=== PATIENT | male | born 1975 | race Hispanic/Latino ===

== ENCOUNTER 2022-04-28 20:48 | Inpatient (IN) | payer SELFPAY ==
[~2022-04-28] VITALS: Ht 185.4 cm; Wt 95.3 kg
[2022-04-28] MEDS ORDERED: SODIUM CHLORIDE 0.9% 1000ML 1,000 ML IV STA ×2 (20:51)
[2022-04-28 21:09] LABS: BASOPHILS # (AUTO) 0.1 (0.0-0.1); BASOPHILS % 0.9 % (0.0-1.0); EOSINOPHILS % 0.4 % (0.0-6.0); HEMATOCRIT 41.3 % (38.2-49.6); HEMOGLOBIN 12.3 g/dL (14.0-18.0); LYMPHOCYTES # (AUTO) 1.8 (1.0-3.2); LYMPHOCYTES % 33.6 % (18.0-39.1); MEAN CORPUSCULAR HEMOGLOBIN 20.9 pg (28-32); MEAN CORPUSCULAR HGB CONC 29.8 g/dL (31-35); MEAN CORPUSCULAR VOLUME 70.2 fL (81-99); MONOCYTES # (AUTO) 0.7 (0.2-0.8); MONOCYTES % 12.2 % (4.4-11.3); NEUTROPHILS # (AUTO) 2.9 (2.1-6.9); NEUTROPHILS % 52.7 % (38.7-80.0); PLATELET COUNT 384 x10e3/uL (140-360); RED BLOOD COUNT 5.88 x10e6/uL (4.3-5.7)
[2022-04-28 21:35] LABS: ALBUMIN 3.4 g/dL (3.5-5.0); ANION GAP 17.6 mmol/L (8-16); CALCIUM 8.2 mg/dL (8.4-10.2); CREATININE, SERUM 1.17 mg/dL (0.72-1.25); POTASSIUM 3.6 mmol/L (3.5-5.1)
[2022-04-28] MEDS ORDERED: ONDANSETRON HCL INJ 2MG/ML 2ML 2 MG/ML VIAL IV STA ×2 (21:39→21:44)
[2022-04-28 21:42] LABS: CREATINE KINASE MB 4.9 ng/mL (0-5.0)
[2022-04-28] MEDS ORDERED: LORAZEPAM INJ 2 MG/ML VIAL IV STA (21:44)
[2022-04-28] MEDS ORDERED: SODIUM CHLORIDE 0.9% 1000ML 1,000 ML IV SCH (22:00)
[2022-04-28] MEDS ORDERED: Morphine 4mg INJECTION 4 MG/ML INJ IV PRN (22:00)
[2022-04-28] MEDS ORDERED: LORAZEPAM INJ 2 MG/ML VIAL ONE (22:01)
[2022-04-28] MEDS ORDERED: IOPAMIDOL 370 MG/ML 100 ML INFUS..BTL INJ ONE (22:25)
[2022-04-28] MEDS ORDERED: DIAZEPAM INJ 5 MG/ML 2 ML IV STA ×2 (22:32→22:58)
[2022-04-28] MEDS ORDERED: DIAZEPAM INJ 5 MG/ML 2 ML ONE (23:13)
[2022-04-28] MEDS ORDERED: ZIPRASIDONE 20 MG VIAL IM STA (23:45)
[2022-04-28] MEDS ORDERED: DIPHENHYDRAMINE HCL 25 MG CAP PO STA (23:47)
[2022-04-29] VITALS (12 sets, daily range): BP systolic 115–176; BP diastolic 80–108
[2022-04-29 00:03] LABS: AMPHETAMINES SCREEN,URINE NEGATIVE (NEGATIVE); BENZODIAZEPINES SCREEN,URINE POSITIVE (NEGATIVE); PHENCYCLIDINE SCREEN,URINE NEGATIVE (NEGATIVE)
[2022-04-29] MEDS ORDERED: DIPHENHYDRAMINE HCL INJ 50 MG/ML VIAL ONE (00:03)
[2022-04-29] MEDS ORDERED: LABETALOL HCL 5 MG/ML 20ML VIAL IV STA ×2 (00:28→00:40)
[2022-04-29] MEDS ORDERED: SODIUM CHLORIDE 0.9% 1000ML 1,000 ML IV STA (00:39)
[2022-04-29] MEDS ORDERED: DIAZEPAM INJ 5 MG/ML 2 ML IV STA (01:19)
[2022-04-29 01:41] LABS: CREATINE KINASE MB 6.4 ng/mL (0-5.0)
[2022-04-29] MEDS ORDERED: ACETAMINOPHEN 325 MG TAB PO ONE (05:15)
[2022-04-29] MEDS ORDERED: ACETAMINOPHEN 325 MG TAB ONE (05:22)
[2022-04-29 05:32] LABS: BASOPHILS # (AUTO) 0.1 (0.0-0.1); BASOPHILS % 0.5 % (0.0-1.0); EOSINOPHILS % 0.3 % (0.0-6.0); HEMATOCRIT 42.4 % (38.2-49.6); HEMOGLOBIN 12.4 g/dL (14.0-18.0); LYMPHOCYTES # (AUTO) 2.2 (1.0-3.2); LYMPHOCYTES % 18.4 % (18.0-39.1); MEAN CORPUSCULAR HEMOGLOBIN 20.8 pg (28-32); MEAN CORPUSCULAR HGB CONC 29.2 g/dL (31-35); MEAN CORPUSCULAR VOLUME 71.1 fL (81-99); MONOCYTES # (AUTO) 0.7 (0.2-0.8); MONOCYTES % 5.8 % (4.4-11.3); NEUTROPHILS # (AUTO) 8.8 (2.1-6.9); NEUTROPHILS % 74.7 % (38.7-80.0); PLATELET COUNT 361 x10e3/uL (140-360); RED BLOOD COUNT 5.96 x10e6/uL (4.3-5.7); RED CELL DISTRIBUTION WIDTH 19.7 % (11.7-14.4)
[2022-04-29 05:45] LABS: ALBUMIN 3.3 g/dL (3.5-5.0); ALBUMIN/GLOBULIN RATIO 0.9 (0.8-2.0); ANION GAP 16.6 mmol/L (8-16); CREATININE, SERUM 1.07 mg/dL (0.72-1.25); POTASSIUM 3.6 mmol/L (3.5-5.1)
[2022-04-29] MEDS: LORAZEPAM INJ 2 MG/ML VIAL IV PRN ×7 (06:48→22:00)
[2022-04-29 06:52] LABS: ANISOCYTOSIS MODERATE; HYPOCHROMASIA MODERATE; OVALOCYTES FEW; PLATELET ESTIMATE ADEQUATE; PLATELET MORPHOLOGY COMMENT NORMAL; RBC MORPHOLOGY COMMENT ABNORMAL; TARGET CELLS FEW
[2022-04-29] MEDS: CHLORDIAZEPOXIDE HCL 25 MG CAP PO SCH ×3 (10:17→17:50)
[2022-04-29] MEDS: FOLIC ACID IV SCH (11:46)
[2022-04-29] MEDS: THIAMINE HCL IV SCH (11:46)
[2022-04-29] MEDS: SODIUM CHLORIDE 0.9% IV SCH (11:46)
[2022-04-29] MEDS: ONDANSETRON HCL INJ 2MG/ML 2ML 2 MG/ML VIAL IV PRN ×2 (11:46→17:50)
[2022-04-29] MEDS ORDERED: POTASSIUM CHLORIDE 20 MEQ TAB CR PO ONE (13:45)
[2022-04-29 15:18] LABS: CREATINE KINASE MB 21.6 ng/mL (0-5.0)
[2022-04-29] MEDS: HYDROCODONE/APAP 5MG-325MG TAB PO PRN (22:58)
[2022-04-30] VITALS (35 sets, daily range): BP systolic 103–183; BP diastolic 52–125
[2022-04-30] MEDS: LORAZEPAM INJ 2 MG/ML VIAL IV PRN ×11 (00:24→23:26)
[2022-04-30] MEDS: CHLORDIAZEPOXIDE HCL 25 MG CAP PO SCH ×3 (02:13→17:21)
[2022-04-30] MEDS ORDERED: AMIODARONE HCL 150 MG/100 ML BAG IV ONE (05:00)
[2022-04-30] MEDS ORDERED: AMIODARONE 900MG 500 ML IV ONE ×2 (05:09→14:48)
[2022-04-30] MEDS: THIAMINE HCL IV SCH ×3 (05:30→23:24)
[2022-04-30] MEDS: FOLIC ACID IV SCH ×3 (05:30→23:24)
[2022-04-30] MEDS: SODIUM CHLORIDE 0.9% IV SCH ×3 (05:30→23:24)
[2022-04-30] MEDS: AMIODARONE 900MG 900 MG in Premix Bag 1 BAG IV SCH ×2 (05:48→14:43)
[2022-04-30] MEDS: ONDANSETRON HCL INJ 2MG/ML 2ML 2 MG/ML VIAL IV PRN ×5 (07:14→21:25)
[2022-04-30] MEDS: HYDROCODONE/APAP 5MG-325MG TAB PO PRN ×2 (07:20→19:35)
[2022-04-30 07:50] LABS: ALBUMIN 2.9 g/dL (3.5-5.0); ALBUMIN/GLOBULIN RATIO 0.9 (0.8-2.0); ANION GAP 15.5 mmol/L (8-16); CALCIUM 7.9 mg/dL (8.4-10.2); CREATININE, SERUM 0.96 mg/dL (0.72-1.25); MAGNESIUM 1.3 MG/DL (1.3-2.1); POTASSIUM 3.5 mmol/L (3.5-5.1)
[2022-04-30] MEDS ORDERED: NICOTINE 14 MG/EA PATCH TOP SCH ×2 (09:00→13:00)
[2022-04-30] MEDS ORDERED: POTASSIUM CHLORIDE 20 MEQ TAB CR PO ONE (10:15)
[2022-04-30] MEDS ORDERED: METOPROLOL TARTRATE INJ 1 MG/ML VIAL IV PRN (11:30)
[2022-04-30] MEDS ORDERED: MAGNESIUM SULFATE 2GM/50ML 50 ML IV ONE (12:00)
[2022-04-30] MEDS ORDERED: METOPROLOL TARTRATE INJ 1 MG/ML VIAL IV ONE ×2 (12:00→15:15)
[2022-04-30] MEDS ORDERED: LORAZEPAM INJ 2 MG/ML VIAL IV ONE (15:15)
[2022-04-30] MEDS ORDERED: METOCLOPRAMIDE HCL 10 MG/2ML VIAL IV ONE (15:15)
[2022-05-01] VITALS (13 sets, daily range): BP systolic 104–156; BP diastolic 64–128
[2022-05-01] MEDS: ONDANSETRON HCL INJ 2MG/ML 2ML 2 MG/ML VIAL IV PRN ×2 (01:27→06:12)
[2022-05-01] MEDS: LORAZEPAM INJ 2 MG/ML VIAL IV PRN ×3 (01:28→07:02)
[2022-05-01] MEDS: CHLORDIAZEPOXIDE HCL 25 MG CAP PO SCH ×2 (02:00→02:57)
[2022-05-01] MEDS: HYDROCODONE/APAP 5MG-325MG TAB PO PRN (02:24)
[2022-05-01 06:45] LABS: BASOPHILS # (AUTO) 0.1 (0.0-0.1); BASOPHILS % 0.4 % (0.0-1.0); EOSINOPHILS # (AUTO) 0.2 (0.0-0.4); EOSINOPHILS % 1.5 % (0.0-6.0); HEMATOCRIT 33.2 % (38.2-49.6); HEMOGLOBIN 9.6 g/dL (14.0-18.0); LYMPHOCYTES # (AUTO) 1.8 (1.0-3.2); LYMPHOCYTES % 12.8 % (18.0-39.1); MEAN CORPUSCULAR HEMOGLOBIN 21.3 pg (28-32); MEAN CORPUSCULAR HGB CONC 28.9 g/dL (31-35); MEAN CORPUSCULAR VOLUME 73.6 fL (81-99); MONOCYTES # (AUTO) 0.9 (0.2-0.8); MONOCYTES % 6.5 % (4.4-11.3); NEUTROPHILS # (AUTO) 10.7 (2.1-6.9); NEUTROPHILS % 78.3 % (38.7-80.0); PLATELET COUNT 236 x10e3/uL (140-360); RED BLOOD COUNT 4.51 x10e6/uL (4.3-5.7); RED CELL DISTRIBUTION WIDTH 19.5 % (11.7-14.4)
[2022-05-01 07:05] LABS: ALBUMIN 1.6 g/dL (3.5-5.0); ALBUMIN/GLOBULIN RATIO 0.8 (0.8-2.0); ANION GAP 10.3 mmol/L (8-16); CREATININE, SERUM 0.57 mg/dL (0.72-1.25)
[2022-05-01 07:27] LABS: POTASSIUM 2.3 mmol/L (3.5-5.1)
[2022-05-01 07:29] LABS: CALCIUM 4.6 mg/dL (8.4-10.2); MAGNESIUM 1.1 MG/DL (1.3-2.1)
== END 2022-05-01 07:53 | disposition left against medical advice (07) | DRG 894 ==
LOC: ER 20:52 → ERHOLD 21:57 → IMCU 04-29 09:53 → ICU 04-29 12:52 → OBSVTOIN 04-29 15:07
PROVIDERS: ADMIT Internal Medicine; ATTEND Internal Medicine
PROC: 02HV33Z Insertion of Infusion Device into Superior Vena Cava, Percutaneous Approach (ICD-10-PCS; principal; 2022-04-30)
DX: F10.231 Alcohol dependence with withdrawal delirium (principal); N17.9 Acute kidney failure, unspecified; F17.200 Nicotine dependence, unspecified, uncomplicated; R00.0 Tachycardia, unspecified; K44.9 Diaphragmatic hernia without obstruction or gangrene; F15.10 Other stimulant abuse, uncomplicated; E87.6 Hypokalemia; D64.9 Anemia, unspecified; I10 Essential (primary) hypertension; K29.20 Alcoholic gastritis without bleeding; Z20.822 Contact with and (suspected) exposure to COVID-19; Z53.29 Procedure and treatment not carried out because of patient's decision for other reasons; Z88.0 Allergy status to penicillin
CPT/HCPCS: 36415; 36569; 71045; 71260; 80053; 80307; 80320; 82550; 82553; 82607; 83690; 83735; 83880; 84484; 85025; 85379; 93005; 93306; 94760; 94799; 96365; 96366; 99252; 99285; G0378; J1200; J2060; J2405; J2765; J3360; J3411; J3475; J3486; J7030; Q9967

== ENCOUNTER 2022-05-01 23:46 | Inpatient (IN) | payer SELFPAY ==
[~2022-05-01] VITALS: Ht 185.4 cm; Wt 106.8 kg
[2022-05-02] VITALS (10 sets, daily range): BP systolic 92–167; BP diastolic 67–125
[2022-05-02] MEDS ORDERED: MULTIVITAMINS- 12 INJECTION 10 ML, FOLIC ACID MDV 1 MG, THIAMINE HCL INJ 100 MG in SODI... IV ONE ×4
[2022-05-02] MEDS ORDERED: AMIODARONE 900MG 900 MG in Premix Bag 1 BAG IV SCH ×2
[2022-05-02] MEDS ORDERED: PROMETHAZINE 25MG/ NS 50ML (IV) IV ONE
[2022-05-02] MEDS ORDERED: AMIODARONE HCL 150 MG/100 ML BAG IV ONE
[2022-05-02 00:04] LABS: BASOPHILS # (AUTO) 0.1 (0.0-0.1); BASOPHILS % 0.5 % (0.0-1.0); EOSINOPHILS % 0.3 % (0.0-6.0); HEMATOCRIT 36.6 % (38.2-49.6); HEMOGLOBIN 10.8 g/dL (14.0-18.0); LYMPHOCYTES # (AUTO) 1.4 (1.0-3.2); LYMPHOCYTES % 10.9 % (18.0-39.1); MEAN CORPUSCULAR HEMOGLOBIN 21.1 pg (28-32); MEAN CORPUSCULAR HGB CONC 29.5 g/dL (31-35); MEAN CORPUSCULAR VOLUME 71.6 fL (81-99); MONOCYTES # (AUTO) 0.9 (0.2-0.8); MONOCYTES % 7.4 % (4.4-11.3); NEUTROPHILS # (AUTO) 10.1 (2.1-6.9); NEUTROPHILS % 80.5 % (38.7-80.0); PLATELET COUNT 276 x10e3/uL (140-360); RED BLOOD COUNT 5.11 x10e6/uL (4.3-5.7); RED CELL DISTRIBUTION WIDTH 19.7 % (11.7-14.4)
[2022-05-02 00:11] LABS: INR 1.06; PROTHROMBIN TIME 14.3 seconds (11.9-14.5)
[2022-05-02] MEDS ORDERED: THIAMINE HCL INJ 100 MG/ML 2ML VIAL ONE (00:11)
[2022-05-02] MEDS ORDERED: SODIUM CHLORIDE 0.9% 1000ML 1,000 ML ONE ×2 (00:11→00:13)
[2022-05-02] MEDS ORDERED: LORAZEPAM INJ 2 MG/ML VIAL ONE (00:11)
[2022-05-02] MEDS ORDERED: FOLIC ACID 5 MG/ML VIAL ONE (00:11)
[2022-05-02 00:12] LABS: PARTIAL THROMBOPLASTIN TIME 29.8 seconds (23.8-35.5)
[2022-05-02] MEDS ORDERED: PROMETHAZINE HCL (IM) 25 MG/ML VIAL IM ONE (00:15)
[2022-05-02 00:19] LABS: ALBUMIN 2.8 g/dL (3.5-5.0); ALBUMIN/GLOBULIN RATIO 0.8 (0.8-2.0); ANION GAP 16.6 mmol/L (8-16); CALCIUM 8.3 mg/dL (8.4-10.2); CREATININE, SERUM 1.12 mg/dL (0.72-1.25); POTASSIUM 3.6 mmol/L (3.5-5.1)
[2022-05-02] MEDS ORDERED: MULTIVITAMINS INJECTION ONE (00:24)
[2022-05-02] MEDS ORDERED: KETOROLAC TROMETHAMINE 30 MG/ML VIAL ONE (00:25)
[2022-05-02] MEDS ORDERED: AMIODARONE 900MG 500 ML IV ONE ×2 (00:25→23:20)
[2022-05-02] MEDS ORDERED: ZIPRASIDONE 20 MG VIAL IM STA (00:38)
[2022-05-02] MEDS ORDERED: HALOPERIDOL LACTATE 5 MG/ML VIAL IV ONE (00:45)
[2022-05-02] MEDS ORDERED: LORAZEPAM INJ 2 MG/ML VIAL IV ONE ×4 (00:45→03:30)
[2022-05-02] MEDS ORDERED: HALOPERIDOL LACTATE 5 MG/ML VIAL ONE (00:56)
[2022-05-02] MEDS ORDERED: DIAZEPAM INJ 5 MG/ML 2 ML IV ONE ×4 (01:15→02:15)
[2022-05-02] MEDS ORDERED: DIPHENHYDRAMINE HCL INJ 50 MG/ML VIAL IV ONE (01:15)
[2022-05-02] MEDS ORDERED: DIPHENHYDRAMINE HCL INJ 50 MG/ML VIAL ONE (01:18)
[2022-05-02] MEDS ORDERED: DIAZEPAM INJ 5 MG/ML 2 ML ONE (01:22)
[2022-05-02] MEDS ORDERED: PROMETHAZINE HCL (IM) 25 MG/ML VIAL IM PRN (02:00)
[2022-05-02] MEDS: LORAZEPAM INJ 2 MG/ML VIAL IV PRN ×5 (02:38→17:23)
[2022-05-02] MEDS: DEXMEDETOMIDINE 400MCG/NS100ML 100 ML IV PRN ×2 (02:55→05:40)
[2022-05-02] MEDS ORDERED: SODIUM CHLORIDE 0.9% 1000ML 1,000 ML IV SCH ×2 (03:45→19:30)
[2022-05-02 07:26] LABS: ABG HCO3 20 mmol/L (22-26); ABG PCO2 28 mmHg (35-45); ABG PH 7.45 (7.35-7.45); ABG PO2 63 mmHg (80-105); ABG TCO2 21
[2022-05-02] MEDS ORDERED: THIAMINE HCL INJ 100 MG/ML 2ML VIAL IV ONE (07:30)
[2022-05-02 07:40] LABS: AMPHETAMINES SCREEN,URINE NEGATIVE (NEGATIVE); BENZODIAZEPINES SCREEN,URINE POSITIVE (NEGATIVE); PHENCYCLIDINE SCREEN,URINE NEGATIVE (NEGATIVE)
[2022-05-02] MEDS ORDERED: MIDAZOLAM HCL 2 MG/2 ML VIAL ONE (07:44)
[2022-05-02] MEDS ORDERED: NOREPINEPHRINE 8 MG/D5W 250 ML 250 ML ONE (07:48)
[2022-05-02] MEDS ORDERED: SUCCINYLCHOLINE CHLORIDE 20 MG/ML 10ML VIAL IV STA (07:50)
[2022-05-02] MEDS ORDERED: ETOMIDATE 40 MG/ 20ML VIAL IV STA (07:50)
[2022-05-02] MEDS ORDERED: ETOMIDATE 40 MG/ 20ML VIAL IV ONE (07:55)
[2022-05-02] MEDS: NOREPINEPHRINE 8 MG/D5W 250 ML 250 ML IV SCH (08:00)
[2022-05-02] MEDS ORDERED: MIDAZOLAM HCL 5MG/ML 10ML VIAL 100 ML IV ONE (08:01)
[2022-05-02] MEDS ORDERED: VECURONIUM BROMIDE FOR INJ 20 MG VIAL IV STA (08:03)
[2022-05-02] MEDS ORDERED: LACTATED RINGER'S 1,000 ML INJ ONE (09:15)
[2022-05-02 09:21] LABS: BASOPHILS # (AUTO) 0.1 (0.0-0.1); BASOPHILS % 0.4 % (0.0-1.0); EOSINOPHILS % 0.1 % (0.0-6.0); HEMATOCRIT 33.6 % (38.2-49.6); HEMOGLOBIN 9.8 g/dL (14.0-18.0); LYMPHOCYTES # (AUTO) 0.8 (1.0-3.2); LYMPHOCYTES % 5.8 % (18.0-39.1); MEAN CORPUSCULAR HEMOGLOBIN 21.5 pg (28-32); MEAN CORPUSCULAR HGB CONC 29.2 g/dL (31-35); MEAN CORPUSCULAR VOLUME 73.7 fL (81-99); MONOCYTES # (AUTO) 0.8 (0.2-0.8); MONOCYTES % 5.8 % (4.4-11.3); NEUTROPHILS # (AUTO) 12.1 (2.1-6.9); NEUTROPHILS % 87.3 % (38.7-80.0); PLATELET COUNT 211 x10e3/uL (140-360); RED BLOOD COUNT 4.56 x10e6/uL (4.3-5.7); RED CELL DISTRIBUTION WIDTH 20.1 % (11.7-14.4)
[2022-05-02] MEDS: MIDAZOLAM HCL 5MG/ML 10ML VIAL 100 ML IV PRN ×2 (09:38→22:46)
[2022-05-02 09:46] LABS: CREATINE KINASE MB 14.4 ng/mL (0-5.0)
[2022-05-02 09:52] LABS: ABG HCO3 23 mmol/L (22-26); ABG PCO2 48 mmHg (35-45); ABG PO2 119 mmHg (80-105); ABG TCO2 25
[2022-05-02 09:58] LABS: ALBUMIN 2.7 g/dL (3.5-5.0); ALBUMIN/GLOBULIN RATIO 0.9 (0.8-2.0); ANION GAP 13.2 mmol/L (8-16); CALCIUM 7.6 mg/dL (8.4-10.2); CREATININE, SERUM 1.35 mg/dL (0.72-1.25); POTASSIUM 4.2 mmol/L (3.5-5.1)
[2022-05-02] MEDS ORDERED: PROPOFOL IV EMULSION 10 MG/ML 20 ML VIAL IV ONE (10:30)
[2022-05-02] MEDS ORDERED: PROPOFOL IV EMULSION 10MG/ML 100 ML ONE ×2 (10:40→19:25)
[2022-05-02] MEDS ORDERED: WATER STERILE 10 ML VIAL ONE ×2 (13:18)
[2022-05-02] MEDS ORDERED: SUCCINYLCHOLINE CHLORIDE 20 MG/ML 10ML VIAL ONE (13:18)
[2022-05-02] MEDS ORDERED: ETOMIDATE 2 MG/ML 10 ML INJ IV ONE (13:18)
[2022-05-02] MEDS ORDERED: VECURONIUM BROMIDE FOR INJ 20 MG VIAL ONE (13:18)
[2022-05-02 14:03] LABS: AMYLASE 36 U/L (25-125); LIPASE 8 U/L (8-78)
[2022-05-02 14:54] LABS: ABG HCO3 24 mmol/L (22-26); ABG PCO2 44 mmHg (35-45); ABG PH 7.35 (7.35-7.45); ABG PO2 97 mmHg (80-105); ABG TCO2 26
[2022-05-02 16:10] LABS: CREATINE KINASE MB 7.6 ng/mL (0-5.0)
[2022-05-02] MEDS ORDERED: PROPOFOL IV EMULSION 10 MG/ML 50 ML VIAL IV PRN (17:45)
[2022-05-02] MEDS ORDERED: SODIUM CHLORIDE 0.9% 1000ML 1,000 ML IV ONE ×2 (19:30)
[2022-05-02 20:59] LABS: CLARITY,URINE CLOUDY (CLEAR); COLOR,URINE YELLOW (YELLOW)
[2022-05-02 21:00] LABS: KETONES,URINE 2+ (NEGATIVE); LEUKOCYTE ESTERASE ,URINE NEGATIVE (NEGATIVE); NITRITE,URINE NEGATIVE (NEGATIVE); PROTEIN,URINE DIPSTICK 2+ (NEGATIVE); URINE UROBILINOGEN 1 mg/dL (0.2 - 1)
[2022-05-02 21:01] LABS: AMORPHOUS SEDIMENT,URINE MANY (FEW); BACTERIA,URINE MANY /HPF; EPITHELIAL CELLS,URINE FEW /LPF; RBC,URINE 0-5 /HPF (0-5); WBC,URINE (MAN) 0-5 /HPF (0-5)
[2022-05-02] MEDS: PROPOFOL IV EMULSION 10MG/ML 100 ML IV PRN (22:43)
[2022-05-02 22:47] LABS: CREATININE,URINE RANDOM 206.82 mg/dL (63-166)
[2022-05-02] MEDS: AMIODARONE 900MG 900 MG in Premix Bag 1 BAG IV SCH (23:29)
[2022-05-03] VITALS (94 sets, daily range): BP systolic 79–140; BP diastolic 54–118
[2022-05-03] MEDS: PROPOFOL IV EMULSION 10MG/ML 100 ML IV PRN ×4 (03:36→23:02)
[2022-05-03] MEDS: MIDAZOLAM HCL 5MG/ML 10ML VIAL 100 ML IV PRN ×3 (03:38→20:38)
[2022-05-03 05:45] LABS: BASOPHILS # (AUTO) 0.1 (0.0-0.1); BASOPHILS % 0.4 % (0.0-1.0); EOSINOPHILS # (AUTO) 0.2 (0.0-0.4); EOSINOPHILS % 1.9 % (0.0-6.0); HEMOGLOBIN 9.7 g/dL (14.0-18.0); LYMPHOCYTES # (AUTO) 1.1 (1.0-3.2); LYMPHOCYTES % 9.2 % (18.0-39.1); MEAN CORPUSCULAR HEMOGLOBIN 21.6 pg (28-32); MEAN CORPUSCULAR HGB CONC 29.4 g/dL (31-35); MEAN CORPUSCULAR VOLUME 73.5 fL (81-99); MONOCYTES # (AUTO) 0.9 (0.2-0.8); MONOCYTES % 7.6 % (4.4-11.3); NEUTROPHILS % 80.3 % (38.7-80.0); PLATELET COUNT 205 x10e3/uL (140-360); RED BLOOD COUNT 4.49 x10e6/uL (4.3-5.7); RED CELL DISTRIBUTION WIDTH 20.3 % (11.7-14.4)
[2022-05-03 06:03] LABS: ALBUMIN/GLOBULIN RATIO 0.7 (0.8-2.0); ANION GAP 15.5 mmol/L (8-16); CALCIUM 7.4 mg/dL (8.4-10.2); CHOL/HDL RATIO 4.3 (3.9-4.7); CREATININE, SERUM 1.08 mg/dL (0.72-1.25); POTASSIUM 3.5 mmol/L (3.5-5.1)
[2022-05-03] MEDS: LORAZEPAM INJ 2 MG/ML VIAL IV PRN ×3 (06:06→20:31)
[2022-05-03] MEDS ORDERED: SODIUM BICARBONATE 8.4% 100 ML in DEXTROSE 5% 1,000 ML IV ONE (07:15)
[2022-05-03] MEDS: SODIUM CHLORIDE 0.9% 1000ML 1,000 ML IV SCH ×3 (07:15→23:47)
[2022-05-03] MEDS: POTASSIUM CHLORIDE 20MEQ/100ML 100 ML IV SCH ×2 (08:56→11:05)
[2022-05-03 11:22] LABS: ABG HCO3 24 mmol/L (22-26); ABG PCO2 36 mmHg (35-45); ABG PH 7.42 (7.35-7.45); ABG PO2 149 mmHg (80-105); ABG TCO2 25
[2022-05-03] MEDS: NOREPINEPHRINE 8 MG/D5W 250 ML 250 ML IV SCH (20:48)
[2022-05-04] VITALS (54 sets, daily range): BP systolic 85–153; BP diastolic 60–111
[2022-05-04] MEDS: LORAZEPAM INJ 2 MG/ML VIAL IV PRN ×11 (00:18→23:38)
[2022-05-04] MEDS ORDERED: AMIODARONE 900MG 500 ML IV ONE (00:22)
[2022-05-04] MEDS: SODIUM CHLORIDE 0.9% 1000ML 1,000 ML IV SCH ×2 (03:28→09:02)
[2022-05-04] MEDS: PROPOFOL IV EMULSION 10MG/ML 100 ML IV PRN (03:28)
[2022-05-04] MEDS: MIDAZOLAM HCL 5MG/ML 10ML VIAL 100 ML IV PRN (05:21)
[2022-05-04 05:39] LABS: BASOPHILS % 0.2 % (0.0-1.0); EOSINOPHILS % 0.2 % (0.0-6.0); HEMATOCRIT 32.1 % (38.2-49.6); HEMOGLOBIN 9.7 g/dL (14.0-18.0); LYMPHOCYTES % 8.3 % (18.0-39.1); MEAN CORPUSCULAR HEMOGLOBIN 22.2 pg (28-32); MEAN CORPUSCULAR HGB CONC 30.2 g/dL (31-35); MEAN CORPUSCULAR VOLUME 73.5 fL (81-99); MONOCYTES % 8.1 % (4.4-11.3); NEUTROPHILS # (AUTO) 10.3 (2.1-6.9); NEUTROPHILS % 82.5 % (38.7-80.0); PLATELET COUNT 171 x10e3/uL (140-360); RED BLOOD COUNT 4.37 x10e6/uL (4.3-5.7); RED CELL DISTRIBUTION WIDTH 21.2 % (11.7-14.4)
[2022-05-04 05:54] LABS: ALBUMIN 2.1 g/dL (3.5-5.0); ALBUMIN/GLOBULIN RATIO 0.8 (0.8-2.0); ANION GAP 12.3 mmol/L (8-16); CALCIUM 7.3 mg/dL (8.4-10.2); CREATININE, SERUM 0.95 mg/dL (0.72-1.25); POTASSIUM 3.3 mmol/L (3.5-5.1)
[2022-05-04 06:25] LABS: CREATINE KINASE MB 3.8 ng/mL (0-5.0)
[2022-05-04] MEDS ORDERED: PHENOBARBITAL SOD 65 MG/ML VIAL IV ONE ×2 (08:15→16:05)
[2022-05-04] MEDS ORDERED: LORAZEPAM INJ 2 MG/ML VIAL ONE (08:22)
[2022-05-04] MEDS ORDERED: MIDAZOLAM HCL 2 MG/2 ML VIAL ONE (08:23)
[2022-05-04] MEDS ORDERED: POTASSIUM CHLORIDE 20MEQ/100ML 200 ML IV ONE (08:45)
[2022-05-04] MEDS ORDERED: LEVALBUTEROL HCL SOLN NEBU 0.63 MG/3 ML NEB INH ONE (11:00)
[2022-05-04] MEDS ORDERED: LEVALBUTEROL HCL SOLN NEBU 1.25 MG/3 ML NEB INH ONE (12:00)
[2022-05-04] MEDS ORDERED: LEVALBUTEROL HCL SOLN NEBU 1.25 MG/3 ML NEB ONE (12:10)
[2022-05-04 15:31] LABS: ABG HCO3 22 mmol/L (22-26); ABG PCO2 31 mmHg (35-45); ABG PH 7.46 (7.35-7.45); ABG PO2 53 mmHg (80-105); ABG TCO2 23
[2022-05-04] MEDS ORDERED: LORAZEPAM INJ 2 MG/ML VIAL IV ONE ×5 (15:40→16:45)
[2022-05-04] MEDS ORDERED: METHYLPREDNISOLONE SOD SUCC 125 MG/2ML VIAL IV ONE (16:15)
[2022-05-04] MEDS: ENOXAPARIN SOD INJ 40 MG/0.4 ML SYR SC SCH (16:56)
[2022-05-04] MEDS ORDERED: LACTATED RINGER'S 1,000 ML INJ ONE (19:15)
[2022-05-05] VITALS (26 sets, daily range): BP systolic 117–173; BP diastolic 76–126
[2022-05-05] MEDS: LORAZEPAM INJ 2 MG/ML VIAL IV PRN ×10 (00:45→22:38)
[2022-05-05] MEDS ORDERED: LACTATED RINGER'S 1,000 ML INJ ONE (02:15)
[2022-05-05] MEDS: AMIODARONE 900MG 900 MG in Premix Bag 1 BAG IV SCH (04:20)
[2022-05-05] MEDS ORDERED: AMIODARONE 900MG 500 ML IV ONE (04:25)
[2022-05-05] MEDS ORDERED: PHENOBARBITAL SOD 65 MG/ML VIAL IV ONE (07:00)
[2022-05-05] MEDS ORDERED: LORAZEPAM INJ 2 MG/ML VIAL IV PRN ×2 (07:00→14:00)
[2022-05-05] MEDS ORDERED: PHENOBARBITAL SOD IV ONE (07:15)
[2022-05-05] MEDS ORDERED: SODIUM CHLORIDE 0.9% IV ONE (07:15)
[2022-05-05 08:05] LABS: BASOPHILS % 0.1 % (0.0-1.0); HEMATOCRIT 38.3 % (38.2-49.6); HEMOGLOBIN 11.3 g/dL (14.0-18.0); LYMPHOCYTES # (AUTO) 0.9 (1.0-3.2); LYMPHOCYTES % 5.7 % (18.0-39.1); MEAN CORPUSCULAR HEMOGLOBIN 21.4 pg (28-32); MEAN CORPUSCULAR HGB CONC 29.5 g/dL (31-35); MEAN CORPUSCULAR VOLUME 72.5 fL (81-99); MONOCYTES # (AUTO) 1.2 (0.2-0.8); MONOCYTES % 8.1 % (4.4-11.3); NEUTROPHILS # (AUTO) 12.6 (2.1-6.9); NEUTROPHILS % 85.2 % (38.7-80.0); PLATELET COUNT 224 x10e3/uL (140-360); RED BLOOD COUNT 5.28 x10e6/uL (4.3-5.7); RED CELL DISTRIBUTION WIDTH 21.3 % (11.7-14.4)
[2022-05-05 08:38] LABS: ALBUMIN 1.9 g/dL (3.5-5.0); ALBUMIN/GLOBULIN RATIO 0.6 (0.8-2.0); ANION GAP 13.6 mmol/L (8-16); CALCIUM 7.5 mg/dL (8.4-10.2); CREATININE, SERUM 0.84 mg/dL (0.72-1.25); POTASSIUM 3.6 mmol/L (3.5-5.1)
[2022-05-05] MEDS: NICOTINE 21 MG/EA PATCH TOP SCH (09:38)
[2022-05-05] MEDS ORDERED: POTASSIUM CHLORIDE 20MEQ/100ML 200 ML IV ONE (13:30)
[2022-05-05] MEDS: LACTATED RINGER'S 1,000 ML INJ SCH (13:55)
[2022-05-05] MEDS ORDERED: ONDANSETRON HCL INJ 2MG/ML 2ML 2 MG/ML VIAL IV STA (14:28)
[2022-05-05] MEDS: DEXMEDETOMIDINE 400MCG/NS100ML 100 ML IV PRN (15:58)
[2022-05-05] MEDS: ENOXAPARIN SOD INJ 40 MG/0.4 ML SYR SC SCH (16:50)
[2022-05-06] VITALS (25 sets, daily range): BP systolic 126–162; BP diastolic 69–109
[2022-05-06] MEDS: LORAZEPAM INJ 2 MG/ML VIAL IV PRN ×6 (00:40→22:58)
[2022-05-06] MEDS: ONDANSETRON HCL INJ 2MG/ML 2ML 2 MG/ML VIAL IV PRN ×5 (00:40→20:33)
[2022-05-06] MEDS: LACTATED RINGER'S 1,000 ML INJ SCH (03:26)
[2022-05-06] MEDS: DEXMEDETOMIDINE 400MCG/NS100ML 100 ML IV PRN (05:24)
[2022-05-06] MEDS: NICOTINE 21 MG/EA PATCH TOP SCH (08:19)
[2022-05-06] MEDS: CHLORDIAZEPOXIDE HCL 25 MG CAP PO SCH ×2 (11:17→21:18)
[2022-05-06] MEDS: AMIODARONE HCL 200 MG TAB PO SCH (16:54)
[2022-05-06] MEDS: ENOXAPARIN SOD INJ 40 MG/0.4 ML SYR SC SCH (16:54)
[2022-05-06] MEDS ORDERED: ARTIFICIAL TEARS (OPTH) 15 ML BTL OU PRN (18:30)
[2022-05-07] VITALS (14 sets, daily range): BP systolic 132–175; BP diastolic 80–103
[2022-05-07] MEDS: ONDANSETRON HCL INJ 2MG/ML 2ML 2 MG/ML VIAL IV PRN ×2 (00:33→04:42)
[2022-05-07] MEDS: LORAZEPAM INJ 2 MG/ML VIAL IV PRN ×2 (01:00→03:18)
[2022-05-07] MEDS: CHLORDIAZEPOXIDE HCL 25 MG CAP PO SCH ×2 (08:36→14:47)
[2022-05-07] MEDS: AMIODARONE HCL 200 MG TAB PO SCH (08:36)
[2022-05-07] MEDS: NICOTINE 21 MG/EA PATCH TOP SCH (08:36)
[2022-05-07] MEDS ORDERED: LORAZEPAM 0.5 MG TAB PO PRN (09:00)
[2022-05-07 14:12] LABS: BASOPHILS # (AUTO) 0.1 (0.0-0.1); BASOPHILS % 0.5 % (0.0-1.0); EOSINOPHILS # (AUTO) 0.1 (0.0-0.4); EOSINOPHILS % 0.8 % (0.0-6.0); HEMATOCRIT 36.6 % (38.2-49.6); LYMPHOCYTES # (AUTO) 1.3 (1.0-3.2); LYMPHOCYTES % 14.1 % (18.0-39.1); MEAN CORPUSCULAR HEMOGLOBIN 21.9 pg (28-32); MEAN CORPUSCULAR HGB CONC 30.1 g/dL (31-35); MEAN CORPUSCULAR VOLUME 72.8 fL (81-99); MONOCYTES # (AUTO) 0.7 (0.2-0.8); MONOCYTES % 7.3 % (4.4-11.3); NEUTROPHILS # (AUTO) 7.1 (2.1-6.9); NEUTROPHILS % 76.9 % (38.7-80.0); PLATELET COUNT 266 x10e3/uL (140-360); RED BLOOD COUNT 5.03 x10e6/uL (4.3-5.7); RED CELL DISTRIBUTION WIDTH 21.2 % (11.7-14.4)
[2022-05-07 14:26] LABS: ANION GAP 16.3 mmol/L (8-16); CREATININE, SERUM 0.86 mg/dL (0.72-1.25); POTASSIUM 3.3 mmol/L (3.5-5.1)
== END 2022-05-07 16:02 | disposition left against medical advice (07) | DRG 894 ==
LOC: ER 23:48 → ERHOLD 05-02 01:53 → ICU 05-02 14:57
PROVIDERS: ADMIT Internal Medicine; ATTEND Internal Medicine
PROC: 0BH17EZ Insertion of Endotracheal Airway into Trachea, Via Natural or Artificial Opening (ICD-10-PCS; principal; 2022-05-02)
PROC: 5A1935Z Respiratory Ventilation, Less than 24 Consecutive Hours (ICD-10-PCS; 2022-05-02)
PROC: 0BH17EZ Insertion of Endotracheal Airway into Trachea, Via Natural or Artificial Opening (ICD-10-PCS; 2022-05-02)
PROC: 5A1945Z Respiratory Ventilation, 24-96 Consecutive Hours (ICD-10-PCS; 2022-05-02)
PROC: 02HV33Z Insertion of Infusion Device into Superior Vena Cava, Percutaneous Approach (ICD-10-PCS; 2022-05-02)
DX: F10.231 Alcohol dependence with withdrawal delirium (principal); J69.0 Pneumonitis due to inhalation of food and vomit; J96.01 Acute respiratory failure with hypoxia; N17.9 Acute kidney failure, unspecified; M62.82 Rhabdomyolysis; E87.6 Hypokalemia; Z88.0 Allergy status to penicillin; I48.91 Unspecified atrial fibrillation; Z79.01 Long term (current) use of anticoagulants; R74.01 Elevation of levels of liver transaminase levels; Z20.822 Contact with and (suspected) exposure to COVID-19; F17.210 Nicotine dependence, cigarettes, uncomplicated; Y90.3 Blood alcohol level of 60-79 mg/100 ml
CPT/HCPCS: 31500; 36415; 36555; 36600; 51700; 71045; 80048; 80053; 80061; 80307; 80320; 81001; 82140; 82150; 82550; 82553; 82570; 82805; 83690; 83735; 83880; 84300; 84484; 85025; 85610; 85730; 87040; 87086; 93005; 94003; 94640; 94799; 99252; 99285; J0330; J0696; J1200; J1630; J1650; J1885; J2060; J2250; J2405; J2550; J2560; J2930; J3360; J3411; J3480; J3486; J7030; J7050; J7070

== ENCOUNTER 2022-05-21 22:58 | Inpatient (IN) | payer SELFPAY ==
[~2022-05-21] VITALS: Ht 190.5 cm; Wt 106.6 kg
[2022-05-22] VITALS (27 sets, daily range): BP systolic 100–148; BP diastolic 60–99
[2022-05-22] MEDS ORDERED: LORAZEPAM INJ 2 MG/ML VIAL ONE (00:04)
[2022-05-22] MEDS ORDERED: CHLORDIAZEPOXIDE HCL 25 MG CAP ONE (00:05)
[2022-05-22] MEDS ORDERED: CHLORDIAZEPOXIDE HCL 25 MG CAP PO ONE (00:15)
[2022-05-22] MEDS ORDERED: MULTIVITAMINS- 12 INJECTION 10 ML, FOLIC ACID MDV 1 MG, THIAMINE HCL INJ 100 MG in SODI... IV ONE (00:15)
[2022-05-22] MEDS ORDERED: LORAZEPAM INJ 2 MG/ML VIAL IV ONE (00:15)
[2022-05-22 00:44] LABS: BASOPHILS # (AUTO) 0.1 (0.0-0.1); BASOPHILS % 1.3 % (0.0-1.0); EOSINOPHILS # (AUTO) 0.1 (0.0-0.4); EOSINOPHILS % 1.5 % (0.0-6.0); HEMATOCRIT 36.5 % (38.2-49.6); HEMOGLOBIN 10.6 g/dL (14.0-18.0); LYMPHOCYTES # (AUTO) 2.1 (1.0-3.2); LYMPHOCYTES % 34.5 % (18.0-39.1); MEAN CORPUSCULAR HEMOGLOBIN 21.2 pg (28-32); MEAN CORPUSCULAR VOLUME 73.1 fL (81-99); MONOCYTES # (AUTO) 0.8 (0.2-0.8); MONOCYTES % 13.6 % (4.4-11.3); NEUTROPHILS # (AUTO) 2.9 (2.1-6.9); NEUTROPHILS % 48.8 % (38.7-80.0); PLATELET COUNT 510 x10e3/uL (140-360); RED BLOOD COUNT 4.99 x10e6/uL (4.3-5.7); RED CELL DISTRIBUTION WIDTH 20.8 % (11.7-14.4)
[2022-05-22 01:05] LABS: ALBUMIN 3.2 g/dL (3.5-5.0); ALBUMIN/GLOBULIN RATIO 0.8 (0.8-2.0); CALCIUM 8.1 mg/dL (8.4-10.2); CREATININE, SERUM 1.22 mg/dL (0.72-1.25)
[2022-05-22 01:12] LABS: CREATINE KINASE MB 1.7 ng/mL (0-5.0)
[2022-05-22 01:14] LABS: LIPASE 35 U/L (8-78)
[2022-05-22 01:16] LABS: SALICYLATE < 5.0 mg/dL (0-30)
[2022-05-22 01:39] LABS: ANION GAP 16.9 mmol/L (8-16); POTASSIUM 3.9 mmol/L (3.5-5.1)
[2022-05-22] MEDS ORDERED: GUAIFENESIN/DEXTROMETHORPHAN LIQD 5 ML UDC PO PRN (02:15)
[2022-05-22] MEDS ORDERED: MELATONIN 3 MG TAB PO PRN (02:15)
[2022-05-22] MEDS ORDERED: METOPROLOL TARTRATE INJ 1 MG/ML VIAL IV PRN (02:15)
[2022-05-22] MEDS ORDERED: ONDANSETRON HCL INJ 2MG/ML 2ML 2 MG/ML VIAL IV PRN (02:15)
[2022-05-22] MEDS ORDERED: ACETAMINOPHEN 325 MG TAB PO PRN (02:15)
[2022-05-22] MEDS ORDERED: ALBUTEROL SULF 0.083% NEB SOLN 3 ML NEB NEB PRN (02:15)
[2022-05-22] MEDS ORDERED: MAGNESIUM/ALUMINUM/SIMETHICONE 30 ML UDC PO PRN (02:15)
[2022-05-22] MEDS: SODIUM CHLORIDE 0.9% 1000ML 1,000 ML IV SCH ×2 (04:33→09:08)
[2022-05-22] MEDS: LORAZEPAM INJ 2 MG/ML VIAL IV PRN ×4 (05:14→17:16)
[2022-05-22] MEDS: CHLORDIAZEPOXIDE HCL 25 MG CAP PO SCH ×3 (05:14→17:16)
[2022-05-22 07:52] LABS: CREATINE KINASE MB 1.3 ng/mL (0-5.0)
[2022-05-22] MEDS: FAMOTIDINE 20 MG TAB PO SCH ×2 (08:18→17:16)
[2022-05-22] MEDS ORDERED: MULTIVITAMINS/MINERALS TAB PO SCH (09:00)
[2022-05-22] MEDS ORDERED: THIAMINE HCL 100 MG TAB PO SCH (09:00)
[2022-05-22 14:59] LABS: CREATINE KINASE MB 1.6 ng/mL (0-5.0)
== END 2022-05-22 18:27 | disposition left against medical advice (07) | DRG 894 ==
LOC: ER 23:05 → ERHOLD 05-22 02:05 → ICU 05-22 02:27
PROVIDERS: ADMIT Family Medicine; ATTEND Family Medicine
DX: F10.231 Alcohol dependence with withdrawal delirium (principal); F19.20 Other psychoactive substance dependence, uncomplicated; R45.1 Restlessness and agitation; I48.91 Unspecified atrial fibrillation; D64.9 Anemia, unspecified; Z20.822 Contact with and (suspected) exposure to COVID-19
CPT/HCPCS: 36415; 71045; 80053; 80320; 80329; 82550; 82553; 83690; 84484; 85025; 93005; 94799; 99285; J2060; J3411; J7030

== ENCOUNTER 2022-06-07 00:33 | Emergency (ER) | payer SELFPAY ==
[~2022-06-07] VITALS: Ht 190.5 cm; Wt 106.6 kg
[2022-06-07] MEDS ORDERED: DIAZEPAM INJ 5 MG/ML 2 ML IV STA (00:37)
[2022-06-07] MEDS ORDERED: SODIUM CHLORIDE 0.9% 1000ML 1,000 ML IV STA (00:37)
[2022-06-07 01:33] LABS: BASOPHILS # (AUTO) 0.1 (0.0-0.1); BASOPHILS % 0.9 % (0.0-1.0); EOSINOPHILS % 0.5 % (0.0-6.0); HEMATOCRIT 37.8 % (38.2-49.6); HEMOGLOBIN 11.4 g/dL (14.0-18.0); LYMPHOCYTES # (AUTO) 1.2 (1.0-3.2); LYMPHOCYTES % 17.9 % (18.0-39.1); MEAN CORPUSCULAR HEMOGLOBIN 21.9 pg (28-32); MEAN CORPUSCULAR HGB CONC 30.2 g/dL (31-35); MEAN CORPUSCULAR VOLUME 72.7 fL (81-99); MONOCYTES # (AUTO) 0.8 (0.2-0.8); MONOCYTES % 11.8 % (4.4-11.3); NEUTROPHILS # (AUTO) 4.5 (2.1-6.9); NEUTROPHILS % 68.6 % (38.7-80.0); PLATELET COUNT 269 x10e3/uL (140-360); RED CELL DISTRIBUTION WIDTH 20.8 % (11.7-14.4)
[2022-06-07 01:40] LABS: AMPHETAMINES SCREEN,URINE NEGATIVE (NEGATIVE); BENZODIAZEPINES SCREEN,URINE POSITIVE (NEGATIVE); PHENCYCLIDINE SCREEN,URINE NEGATIVE (NEGATIVE)
[2022-06-07 01:46] LABS: LIPASE 31 U/L (8-78)
[2022-06-07 01:51] LABS: ANION GAP 15.1 mmol/L (8-16); CREATININE, SERUM 1.38 mg/dL (0.72-1.25); POTASSIUM 4.1 mmol/L (3.5-5.1)
[2022-06-07 01:53] LABS: CALCIUM 9.6 mg/dL (8.4-10.2)
[2022-06-07 02:20] LABS: CREATINE KINASE MB 2.5 ng/mL (0-5.0)
[2022-06-07] MEDS ORDERED: SODIUM CHLORIDE 0.9% 1000ML 1,000 ML ONE (03:21)
[2022-06-07] MEDS ORDERED: SODIUM CHLORIDE 0.9% 1000ML 1,000 ML IV ONE (03:30)
[2022-06-07 04:06] LABS: CREATINE KINASE MB 2.3 ng/mL (0-5.0)
[2022-06-07 05:08] VITALS: BP 107/63
== END 2022-06-07 05:08 ==
LOC: ER 00:38
DX: R07.9 Chest pain, unspecified (principal); F10.239 Alcohol dependence with withdrawal, unspecified; I10 Essential (primary) hypertension; K21.9 Gastro-esophageal reflux disease without esophagitis; F41.9 Anxiety disorder, unspecified; F32.A Depression, unspecified; F13.90 Sedative, hypnotic, or anxiolytic use, unspecified, uncomplicated
CPT/HCPCS: 36415; 71045; 80053; 80307; 80320; 82550; 82553; 83690; 83880; 84484; 85025; 93005; 99284; J3360; J7030

== ENCOUNTER 2022-08-08 23:32 | Emergency (ER) | payer SELFPAY ==
[~2022-08-08] VITALS: Ht 190.5 cm; Wt 106.6 kg
[2022-08-08] MEDS ORDERED: HYDROXYZINE HCL 25 MG TAB PO ONE (23:45)
[2022-08-09 00:07] LABS: BASOPHILS % 0.9 % (0.0-1.0); EOSINOPHILS # (AUTO) 0.1 (0.0-0.4); EOSINOPHILS % 2.9 % (0.0-6.0); HEMATOCRIT 52.2 % (38.2-49.6); HEMOGLOBIN 16.7 g/dL (14.0-18.0); LYMPHOCYTES # (AUTO) 1.8 (1.0-3.2); LYMPHOCYTES % 39.5 % (18.0-39.1); MEAN CORPUSCULAR HEMOGLOBIN 24.9 pg (28-32); MEAN CORPUSCULAR VOLUME 77.7 fL (81-99); MONOCYTES # (AUTO) 0.5 (0.2-0.8); MONOCYTES % 10.3 % (4.4-11.3); NEUTROPHILS # (AUTO) 2.1 (2.1-6.9); NEUTROPHILS % 46.2 % (38.7-80.0); PLATELET COUNT 272 x10e3/uL (140-360); RED BLOOD COUNT 6.72 x10e6/uL (4.3-5.7)
[2022-08-09 00:19] LABS: ANION GAP 17.1 mmol/L (8-16); CALCIUM 8.9 mg/dL (8.4-10.2); CREATININE, SERUM 1.36 mg/dL (0.72-1.25); POTASSIUM 4.1 mmol/L (3.5-5.1)
[2022-08-09 00:38] VITALS: BP 118/84; O2SAT 95
== END 2022-08-09 00:44 | disposition home or self-care (01) ==
LOC: ER 23:36
DX: R07.9 Chest pain, unspecified (principal); F17.200 Nicotine dependence, unspecified, uncomplicated; F10.11 Alcohol abuse, in remission; F15.11 Other stimulant abuse, in remission; F41.9 Anxiety disorder, unspecified; F32.A Depression, unspecified; K21.9 Gastro-esophageal reflux disease without esophagitis; I10 Essential (primary) hypertension; Z88.1 Allergy status to other antibiotic agents
CPT/HCPCS: 36415; 80048; 84484; 85025; 93005; 99283; J3410